=== PATIENT | male | born 1990 | race Asian ===

== ENCOUNTER 2021-01-23 20:58 | Inpatient (IN) | payer SELFPAY ==
[~2021-01-23] VITALS: Ht 170.2 cm; Wt 85.3 kg
--- NOTE | 2021-01-23 22:00 | NUR ---
PTBIBS MID ABD PAIN X 2DAYS, WORSE TODAY TO ER BED 4
[2021-01-23] MEDS ORDERED: HYDROMORPHONE 1 MG/1 ML DISP.SYRIN ONE (22:17)
[2021-01-23] MEDS ORDERED: ONDANSETRON HCL/PF 4 MG/2 ML VIAL ONE (22:17)
[2021-01-23] MEDS ORDERED: CT SWABBABLE VALVE TRANS SET 1 EA INFUS.SET MC ONE (22:19)
[2021-01-23] MEDS ORDERED: IOHEXOL-300 100 ML VIAL IV ONE (22:19)
[2021-01-23] MEDS ORDERED: IV NS 0.9% 250 ML IV ONE (22:19)
[2021-01-23] MEDS ORDERED: HYDROMORPHONE INJ 2 MG/ML DISP.SYRIN IV ONE (22:30)
[2021-01-23] MEDS ORDERED: ONDANSETRON HCL/PF 4 MG/2 ML VIAL IVP ONE (22:30)
[2021-01-23] MEDS ORDERED: IV NS 0.9% 1,000 ML BAG IV ONE (22:30)
[2021-01-23 22:38] LABS: BASOPHILS # (AUTO) 0.1 K/uL (0.0-0.2); BASOPHILS % (AUTO) 0.5 % (0.0-2.0); EOSINOPHILS % (AUTO) 0.1 % (0.0-6.0); HEMATOCRIT 45 % (39-51); HEMOGLOBIN 14.7 g/dL (13.5-17.5); LYMPHOCYTES # (AUTO) 2.1 K/uL (0.8-4.8); LYMPHOCYTES % (AUTO) 14.6 % (20.0-44.0); MEAN CORPUSCULAR HGB CONC 33 g/dl (31.0-36.0); MEAN CORPUSCULAR VOLUME 74 fL (80-96); MONOCYTES # (AUTO) 0.8 K/uL (0.1-1.30); NEUTROPHILS # (AUTO) 11.1 K/uL (1.8-8.9); NEUTROPHILS % (AUTO) 78.8 % (43.0-81.0); PLATELET COUNT (AUTO) 185 K/uL (150-450); WHITE BLOOD COUNT (AUTO) 14.1 K/uL (4.3-11.0)
--- NOTE | 2021-01-23 22:42 | NUR ---
BROUGHT BACK FROM CT
[2021-01-23 22:45] LABS: CALCIUM, SERUM 8.8 mg/dL (8.5-10.1); POTASSIUM 3.4 mmol/L (3.5-5.1)
[2021-01-23 22:50] LABS: ALBUMIN 3.5 g/dL (3.4-5.0); BILIRUBIN,DIRECT 0.1 mg/dL (0.0-0.2); BILIRUBIN,TOTAL 0.5 mg/dL (0.2-1.0); TOTAL PROTEIN, SERUM 7.2 g/dL (6.4-8.2)
[2021-01-23 22:57] LABS: BILIRUBIN,URINE SMALL (NEGATIVE); COLOR,URINE YELLOW (YELLOW); LEUKOCYTE ESTERASE ,URINE Negative (NEGATIVE); NITRITE, URINE Negative (NEGATIVE); PH,URINE 5.5 (5.0-8.0); PROTEIN,URINE Negative (NEGATIVE); UGLUCOSE Negative (NEGATIVE); UROBILINOGEN,URINE 0.2 EU/dL (0.2)
--- NOTE | 2021-01-23 23:04 | NUR ---
Renzo murphy in [facility] - 01/24/21 at 0133 by LAUREN TRANSFUSION COMPLETED AT 2303, NO REACTIONS
--- NOTE | 2021-01-23 23:15 | NUR ---
RHONA BECK SPOKE TO DR. ALARCON REGARDING PT.
[2021-01-23] MEDS ORDERED: HEPARIN SODIUM, PORCINE 5000 UNITS/1 ML VIAL ONE (23:20)
[2021-01-23 23:25] LABS: BACTERIA,URINE None seen /HPF (None Seen); RBC,URINE 0-2 /HPF (0-2); SQUAMOUS EPITHELIAL CELL,UR Few /HPF (None Seen); URINE AMORPHOUS PHOSPHATES Few /HPF (None Seen); WBC,URINE 0-2 /HPF (0-3)
[2021-01-23] MEDS ORDERED: HEPARIN SODIUM, PORCINE 5000 UNITS/1 ML VIAL IV ONE (23:30)
--- NOTE | 2021-01-23 23:36 | NUR ---
COVID SWAB COLLECTED AND SENT TO LAB
[2021-01-23 23:59] LABS: BAND % (MANUAL) 15 % (0.0-5.0); BASOPHILS % (MANUAL) 0 % (0.0-2.0); EOSINOPHILS % (MANUAL) 0 % (0-4); LYMPHOCYTES % (MANUAL) 11 % (16-48); MONOCYTES % (MANUAL) 10 % (0-11.0); NEUTROPHILS % (MANUAL) 64 (42-76)
--- NOTE | 2021-01-24 00:19 | NUR ---
ER SPOKE TO DR. GARCIA REGARDING PT ADMISSION.
[2021-01-24] MEDS ORDERED: HYDROMORPHONE 1 MG/1 ML DISP.SYRIN ONE ×2 (00:54→02:39)
[2021-01-24] MEDS ORDERED: IV NS 0.9% 1,000 ML BAG IV ONE (01:00)
[2021-01-24] MEDS ORDERED: HYDROMORPHONE INJ 2 MG/ML DISP.SYRIN IV ONE (01:00)
--- NOTE | 2021-01-24 01:36 | NUR ---
OK TO CANCEL COVID PCR PER DR. DELGADO.
--- NOTE | 2021-01-24 01:44 | NUR ---
CALLED IN REPORT TO JORGE SARKAR, PER RN, BED IS DIRTY, WILL CALL WHEN READY
[2021-01-24] MEDS ORDERED: HYDROMORPHONE 1 MG/1 ML DISP.SYRIN IV PRN (03:00)
[2021-01-24 03:30] VITALS: BP 144/88
--- NOTE | 2021-01-24 03:30 | NUR ---
Patient arrived to unit in stable condition. VS 144/88, HR 79, O2 95%, RR 20, Temp 97.9. Tele monitor applied. Patient c/o abdominal pain. Will give once orders are in place. Oriented to unit protocols. All safety measures in place. Denies SOB, no neurological deficits. Bowel sounds hypoactive, stomach slightly distended but soft and tender to touch. Heart rate and rhythm regular. Patient reports NKA, only hx of DVT to leg. Fully covid vaccinated.
[2021-01-24] MEDS ORDERED: ONDANSETRON HCL/PF 4 MG/2 ML VIAL IV PRN (04:30)
[2021-01-24] MEDS: IV D5/0.45 NACL 1,000 ML IV PRN ×2 (04:43→17:31)
[2021-01-24] MEDS: PANTOPRAZOLE 40 MG VIAL IV SCH ×2 (04:45→21:58)
[2021-01-24] MEDS: HYDROMORPHONE 1 MG/1 ML DISP.SYRIN IV PRN ×5 (04:53→20:27)
[2021-01-24] MEDS ORDERED: HEPARIN INFUSION/D5W 500 ML IV ONE (05:43)
[2021-01-24] MEDS: HEPARIN INFUSION/D5W 500 ML IV PRN ×2 (06:23→22:51)
--- NOTE | 2021-01-24 06:23 | NUR ---
Patient started on heparin drip to RAC #18G IV. co-signed by 2 RNs. Heparin drip protocol verified by charge nurse and verified by DR avila sale professional digital marketing nights. Rate of 1550 units per hour. scheduled next PTT at 1223. No signs of bleeding.
[2021-01-24] MEDS ORDERED: ACETAMINOPHEN 650 MG/SUPP.RECT RC PRN (07:00)
--- NOTE | 2021-01-24 07:00 | NUR ---
Patient is A&Ox4, heparin drip still going smoothly. Pain responsive to PRN dilaudid.
[2021-01-24 07:17] LABS: BASOPHILS % (AUTO) 0.1 % (0.0-2.0); HEMATOCRIT 45 % (39-51); HEMOGLOBIN 14.3 g/dL (13.5-17.5); LYMPHOCYTES % (AUTO) 6.9 % (20.0-44.0); MEAN CORPUSCULAR HGB CONC 32 g/dl (31.0-36.0); MEAN CORPUSCULAR VOLUME 76 fL (80-96); MONOCYTES # (AUTO) 0.9 K/uL (0.1-1.30); NEUTROPHILS # (AUTO) 12.6 K/uL (1.8-8.9); PLATELET COUNT (AUTO) 232 K/uL (150-450); RED BLOOD CELL COUNT(AUTO) 5.87 MIL/uL (4.5-6.0); WHITE BLOOD COUNT (AUTO) 14.5 K/uL (4.3-11.0)
--- NOTE | 2021-01-24 07:30 | NUR ---
TELE/RN OPENING NOTES RECEIVED PATIENT IN BED AWAKE ALERT AND ORIENTED X4. PATIENT IS ON ROOM AIR SATURATING WELL. NO COMPLAINED OF PAIN NOTED AT THIS TIME. WILL CONTINUE TO MONITOR.
[2021-01-24 08:49] LABS: ALBUMIN 2.9 g/dL (3.4-5.0); BILIRUBIN,TOTAL 0.4 mg/dL (0.2-1.0); CALCIUM, SERUM 7.9 mg/dL (8.5-10.1); CREATININE 1.2 mg/dL (0.6-1.3); MAGNESIUM 1.9 mg/dL (1.8-2.4); PHOSPHORUS 3.4 mg/dL (2.5-4.9); TOTAL PROTEIN, SERUM 6.4 g/dL (6.4-8.2)
[2021-01-24] MEDS: PIPERACILLIN /TAZOBACTAM 3.375 G in IV D5W 50 ML IV SCH ×3 (08:57→17:31)
--- NOTE | 2021-01-24 17:48 | NUR ---
RN NOTES PATIENT MONITOR READING SINUS RHYTHM 140-[address] DUNN WAS AWARE AND ORDER STAT EKG. NOTED AND CARRIED OUT.
[2021-01-24 18:18] VITALS: BP 139/88
--- NOTE | 2021-01-24 18:55 | NUR ---
TELE/RN CLOSING NOTES PATIENT IS ON BED AWAKE ALERT AND ORIENTED X4. PATIENT IS ON ROOM AIR SATURATION 97%. PATIENT IN NO APPARENT RESPIRATORY DISTRESS NOTED. NO COMPLAINED OF PAIN NOTED AT THIS TIME. TELE MONITOR READING SINUS TACHY 116 BPM. SEEN AND EXAMINED BY MD WITH ORDERS MADE AND CARRIED OUT. ALL DUE MEDICATIONS WAS GIVEN. IV ACCESS AT LEFT HAND AC #18 G WITH HEPARIN DRIP AT 1400U/HR AND IV IV ACCESS AT RIGHT HAND #18G WITH IV FLUID OF D51/2NS 1L AT 75ML/HR ON AND INFUSING WELL. SAFETY PRECAUTION WAS IN PLACED. BED IN LOWEST POSITION AND LOCKED. SIDE RAILS UP X2. WILL ENDORSED TO BOOKMOBILE CLERK FOR SUSY.
[2021-01-24 20:00] VITALS: BP 133/91
[2021-01-25] VITALS: BP 136/77
[2021-01-25] MEDS: PIPERACILLIN /TAZOBACTAM 3.375 G in IV D5W 50 ML IV SCH ×4 (00:40→17:06)
--- NOTE | 2021-01-25 02:00 | NUR ---
COMPANY MINER BLASTING NOTES BROTHER CALLED. NOTIFIED HIM RE HIPAA REGULATIONS. DIRECTED TO [facility] PRIMARY RESPONSIBLE LIBERTARIAN FOR THE PT. PT AGREED TO LET COORDINATE CARE WITH OTHER FAMILY MEMBERS. WILL CONTINUE TO MONITOR.
[2021-01-25] MEDS: HYDROMORPHONE 1 MG/1 ML DISP.SYRIN IV PRN ×4 (02:41→12:50)
[2021-01-25 04:00] VITALS: BP 137/88
[2021-01-25 05:05] LABS: BASOPHILS # (AUTO) 0.1 K/uL (0.0-0.2); BASOPHILS % (AUTO) 0.7 % (0.0-2.0); HEMATOCRIT 38 % (39-51); HEMOGLOBIN 12.4 g/dL (13.5-17.5); LYMPHOCYTES # (AUTO) 1.9 K/uL (0.8-4.8); MEAN CORPUSCULAR HGB CONC 33 g/dl (31.0-36.0); MEAN CORPUSCULAR VOLUME 75 fL (80-96); MONOCYTES # (AUTO) 1.8 K/uL (0.1-1.30); MONOCYTES % (AUTO) 10.8 % (2.0-12.0); NEUTROPHILS % (AUTO) 77.5 % (43.0-81.0); PLATELET COUNT (AUTO) 224 K/uL (150-450); RED BLOOD CELL COUNT(AUTO) 5.07 MIL/uL (4.5-6.0); WHITE BLOOD COUNT (AUTO) 16.8 K/uL (4.3-11.0)
[2021-01-25 05:13] LABS: CALCIUM, SERUM 7.8 mg/dL (8.5-10.1); MAGNESIUM 1.9 mg/dL (1.8-2.4); POTASSIUM 4.2 mmol/L (3.5-5.1)
--- NOTE | 2021-01-25 06:34 | NUR ---
PACKAGING ASSOCIATE NOTES AWAKE & RESPONSIVE. NOT IN ANY DISTRESS. NO SOB NOTED. DENIES ANY PAIN OR DISCOMFORT AT THIS TIME. WITH IVF & HEPARIN DRIP INFUSING WELL. MONITORED ACCORDINGLY. CALL LIGHT WITHIN REACH. BED IN LOWEST POSITION. SR UP X 2 FOR SAFETY. WILL ENDORSE TO NEXT SHIFT.
--- NOTE | 2021-01-25 07:15 | NUR ---
RN NOTE RECEIVED PATIENT IN BED. A/O X4. ON ROOM AIR, NO SOB NOTED. NO S/S OF RESPIRATORY DISTRESS. IV ACCESS ON R HAND #18 G, R AC # 22 G RUNNING HEPARIN DRIP @ 1100 UNITS/HR. BOTH LINES ARE INTACT AND PATENT. PT IS CURRENTLY ON NPO STATUS. SAFETY MEASURES MAINTAINED. BED IN LOWEST POSITION, BRAKES LOCKED. SIDE RAILS UP X2. CALL LIGHT WITHIN REACH. WILL CONTINUE PLAN OF CARE.
[2021-01-25 08:00] VITALS: BP 128/89
[2021-01-25] MEDS: PANTOPRAZOLE 40 MG VIAL IV SCH (08:13)
[2021-01-25] MEDS ORDERED: IV NS 0.9% 1,000 ML IV ONE (11:30)
[2021-01-25] MEDS ORDERED: IV LR 1000 ML 1,000 ML IV PRN (11:30)
[2021-01-25] MEDS ORDERED: HEPARIN SODIUM, PORCINE 5000 UNITS/1 ML VIAL IV ONE (13:30)
[2021-01-25 16:00] VITALS: BP 135/87
--- NOTE | 2021-01-25 16:15 | NUR ---
RN NOTE PTT OF 47.8, NO CHANGE WITH THE RATE PER PROTOCOL. ORDERED PTT TOMORROW AT 0500.
[2021-01-25] MEDS ORDERED: ACETAMINOPHEN 325 MG TABLET PO PRN (17:00)
--- NOTE | 2021-01-25 17:05 | NUR ---
RN NOTE PATIENT IS FEELING NAUSEOUS AND HAS EPISODES OF VOMITING. ZOFRAN IV PRN GIVEN.
[2021-01-25] MEDS: HEPARIN INFUSION/D5W 500 ML IV PRN (17:15)
--- NOTE | 2021-01-25 18:28 | NUR ---
RN CLOSING NOTE PATIENT RESTING IN BED. A/O X4. ON ROOM AIR, NO SOB NOTED. IN NO APPARENT DISTRESS. IV ACCESS ON R HAND #18 G, R AC # 22 G RUNNING HEPARIN DRIP @ 1100 UNITS/HR. BOTH LINES ARE INTACT AND PATENT. NO SIGNS OF INFILTRATION. ALL DUE MEDS GIVEN ORDERED. ALL NEEDS HAVE BEEN MET AND ATTENDED. SAFETY MEASURES MAINTAINED. BED IN LOWEST POSITION, BRAKES LOCKED. SIDE RAILS UP X2. CALL LIGHT WITHIN REACH. WILL ENDORSE CONTINUITY OF CARE TO ONCOMING SHIFT.
--- NOTE | 2021-01-25 19:02 | NUR ---
RN NOTE KONG MARTIN NP, ORDERED PT TO BE ON NPO. SIPS OF WATER IS OKAY. ORDER CARRIED OUT.
--- NOTE | 2021-01-25 20:19 | NUR ---
MS RN OPENING NOTE PATIENT A/OX4; ABLE TO MAKE NEEDS KNOWN. TOLERATING ROOM AIR WELL WITH NO SOB. RAC #22G HEPARIN @ 110UNITS/HR; PATENT AND INTACT. R HAND #18G S/L PATENT AND INTACT. FAMILY AT BEDSIDE. SAFETY MEASURES IN PLACE: BED IN LOWEST LOCKED POSITION, SIDE RAILS UPX2, CALL LIGHT WITHIN EASY REACH, BED ALARMS ON. PATIENT IN STABLE CONDITION; WILL CONT. PLAN OF CARE.
--- NOTE | 2021-01-25 21:26 | NUR ---
MS RN AMA NOTE PATIENT GOING AMA; EDUCATED PATIENT AND FAMILY RISKS AND BENEFITS OF AMA; VERBALIZED UNDERSTANDING. D/C IV AND NO ACTIVE BLEEDING. PATIENT AND FAMILY REFUSED TO SIGN AMA PAPER WORK. FAMILY SIGNED PATIENT BELONGINGS LIST AND ALL BELONGINGS WITH PATIENT. BP 138/80. P 76, T 98.F. TOLERATING ROOM AIR; NO PAIN, N/V. INFORMED DR. DANIELLE AND DR. NARANJO PATIENT DESIRES TO GO AMA.
--- NOTE | 2021-01-26 10:35 | NUR ---
Supervisor [employer] note: [employer] consultation received for transfer and insurance. This SHELTERED WORKSHOP EXECUTIVE DIRECTOR spoke with FUNMILAYO Xie regarding status of transfer, however Anne-Marie stated that patient left AMA. Per nursing notes, patient left AMA on 01/25/21, slightly after 21:00pm. No further SS interventions needed at this time.
[2021-01-29 09:07] LABS: *ANTITHROMBIN III AG 61 % (72-124); *DILUTE PROTHROMBIN TIME (dPT) 36.7 sec (0.0-55.0); *THROMBIN TIME 62.6 sec (0.0-23.0); *dPT CONFIRM RATIO 0.94 Ratio (0.00-1.40); *dRVVT 35.7 sec (0.0-47.0); PROTEIN C ACTIVITY 90 % (73-180)
== END 2021-01-25 21:20 | disposition left against medical advice (07) | DRG 393 ==
LOC: ER 21:03 → TELE 01-24 01:40 → MED 01-25 08:43
PROVIDERS: ADMIT Nurse Practitioner Family; ATTEND Nurse Practitioner Family
DX: K55.059 Acute (reversible) ischemia of intestine, part and extent unspecified (principal); I81 Portal vein thrombosis; E44.1 Mild protein-calorie malnutrition; E87.2 Acidosis; K55.069 Acute infarction of intestine, part and extent unspecified; K55.029 Acute infarction of small intestine, extent unspecified; Z20.822 Contact with and (suspected) exposure to COVID-19; E87.6 Hypokalemia; D72.829 Elevated white blood cell count, unspecified; Z86.718 Personal history of other venous thrombosis and embolism; K40.90 Unilateral inguinal hernia, without obstruction or gangrene, not specified as recurrent; R73.9 Hyperglycemia, unspecified
CPT/HCPCS: 36415; 80048-TC; 80053-TC; 80076-TC; 81001; 83605-TC; 83690-TC; 83735-TC; 84100-TC; 85025-TC; 85300; 85301; 85303; 85613; 85670; 85705; 85730-TC; 85732; 86850-TC; 87040-TC; 87081-TC; C9113; C9803; G0378; J1170; J1644; J2405; J2543; J3490; J7030; J7050; J7060; J7120; Q9967; U0003